=== PATIENT | female | born 1990 | race Caucasian/White ===

== ENCOUNTER → 2016-11-29 | Outpatient (CLI) | payer BC ==
[~2016-11-29] MED LIST: ADAL40KI SQ; ASCO-324 PO; CALC-1038 PO; CETI10CA19 PO; DIPH25CA84 PO; FERR324T4 PO; FOLI1TAB15 PO; HYDR25TA85 PO; LACT1CAP73 PO; LEVO1TBD3; PRED20TA PO; TRIA15OI6 TOP
[2016-11-29 10:47] LABS: ALBUMIN 4.1 G/DL (3.5-5.0); ALBUMIN/GLOBULIN RATIO 1.2 RATIO (1.1-2.2); ALKALINE PHOSPHATASE 105 U/L (38-126); ALT (SGPT) 24 U/L (9-52); ANION GAP 13 MEQ/L (5-15); AST (SGOT) 18 U/L (14-36); BUN/CREATININE RATIO 17 RATIO (6-26); CHLORIDE 106 MEQ/L (98-107); CO2 - CARBON DIOXIDE 26 MEQ/L (22-30); CREATININE 0.9 MG/DL (0.7-1.2); GLOMERULAR FILTRATION RATE 76; GLUCOSE 88 MG/DL (65-110); POTASSIUM 3.9 MEQ/L (3.6-5); SODIUM 145 MEQ/L (134-144); TOTAL PROTEIN 7.6 G/DL (6.3-8.2)
== END ==
LOC: LAB 10:08
PROVIDERS: ATTEND Family Medicine
DX: K21.9 Gastro-esophageal reflux disease without esophagitis (principal); K50.10 Crohn's disease of large intestine without complications; R73.09 Other abnormal glucose
CPT/HCPCS: 36415; 80053; 81401; 83036; 87340